=== PATIENT | female | born 1985 | race Caucasian/White ===

== ENCOUNTER 2020-03-05 06:56 | Day surgery (SDC) | payer MEDICAID ==
[2020-03-05] MEDS ORDERED: Midazolam 1 MG/ML 2 ML SDV IV ONE (06:57)
[2020-03-05] MEDS ORDERED: Propofol 200 MG/20 ML SDV IV ONE (06:57)
[2020-03-05] MEDS ORDERED: Lactated Ringers 1,000 ML IV SCH (07:00)
[2020-03-05] MEDS ORDERED: Sodium Chloride 0.9% 10 ML Syringe FLUSH PRN (07:00)
[2020-03-05] MEDS ORDERED: Midazolam 1 MG/ML 2 ML SDV ONE (07:20)
[2020-03-05] MEDS ORDERED: Propofol 200 MG/20 ML SDV ONE ×4 (07:21→08:13)
--- NOTE | 2020-03-05 10:30 | PCM.OPNOTE ---
- General Post-Op/Procedure Note Date of Surgery/Procedure: 03/05/20 Operative Procedure(s): Colonoscopy. Findings: Colonoscopy. Pre Op Diagnosis: Constipation and intermittent episodes of abdominal pain. Rectal bleeding. Post-Op Diagnosis: Severe irritable bowel syndrome, constipation variety. Anesthesia Technique: MAC Primary Surgeon: Charles Leiva Complications: None Condition: Good Free Text/Narrative:: INFORMED CONSENT: Patient is here today for elective colonoscopy. All aspects of this procedure have been discussed with the patient. All possible complications also, including possibility of perforation, infection, pain, bleeding and unknown complications. In the event of perforation patient may need to have abdominal exploration, colon resection, colostomy and even was discussed. Anesthetic complications were handled by anesthesia department. The patient understands fully well. Patient did not have any further questions for me at the end of my interview. The patient wishes for me to proceed. PREOPERATIVE DIAGNOSIS/INDICATIONS: [Severe constipation, rectal bleeding.] POSTOPERATIVE DIAGNOSIS: [Severe IBD, constipation variety.] INSTRUMENT USED: Olympus videocolonoscope. ASA CLASSIFICATION: [1] ANESTHESIA: Continuous EKG, oximetry and intermittent blood pressure and respiratory monitoring were performed throughout the procedure. IV Versed and Fentanyl were administered. PROCEDURE PERFORMED: Colonoscopy, the entire colon was dilated with with of musculature. . POSITIONS OF PATIENT: Left lateral. RECTUM: Normal. SIGMOID COLON: Normal,but dilated DESCENDING COLON: Normal. Dilated. SPLENIC FLEXURE: Normal. Dilated. TRANSVERSE COLON: Normal. Dilated. HEPATIC FLEXURE: Normal. Dilated. ASCENDING COLON: Normal. CECUM: Normal. ILEOCECAL VALVE: Normal. BIOPSY: None. TOLERANCE: Excellent. COMPLICATIONS: None.
== END 2020-03-05 10:20 | disposition home or self-care (01) ==
LOC: KA.SDS 06:56
PROVIDERS: ATTEND Family Medicine
DX: K58.1 Irritable bowel syndrome with constipation (principal); E66.9 Obesity, unspecified; F41.1 Generalized anxiety disorder; Z68.32 Body mass index [BMI] 32.0-32.9, adult; Z79.899 Other long term (current) drug therapy; Z88.5 Allergy status to narcotic agent
CPT/HCPCS: 45378; J2250; J2704; J7120; 00811